=== PATIENT | female | born 1995 | race Caucasian/White ===

== ENCOUNTER 2018-04-15 00:47 | Emergency (ER) | payer OTHER ==
[~2018-04-15] VITALS: Ht 162.6 cm; Wt 63.5 kg
[2018-04-15] MEDS ORDERED: IV NORMAL SALINE 1,000ML 1,000 ML IV ONE ×2 (01:45→04:00)
[2018-04-15] MEDS ORDERED: ONDANSETRON PF 4 MG/2 ML VIAL. IV ONE ×2 (01:45→04:30)
[2018-04-15 02:00] LABS: ALBUMIN 2.8 g/dL (3.4-5.0); ALBUMIN/GLOBULIN RATIO 0.7 (1.0-1.7); CALCIUM 8.4 mg/dL (8.5-10.1); CREATININE 0.7 mg/dL (0.6-1.0); GFR 106.7; POTASSIUM 3.6 mmol/L (3.5-5.1); TOTAL BILIRUBIN 0.5 mg/dL (0.2-1.0)
--- NOTE | 2018-04-15 02:16 | RAD ---
Limited obstetrical ultrasound 04/15/2018. Reason for exam: Vomiting and fever during . A living fetus is demonstrated and was in cephalic position at the time of scanning. Heart rate of 160 bpm were shown and movement was noted. Although a full anatomic survey was not undertaken, no anomaly was encountered. Amniotic fluid volume appears appropriate. The placenta is shown posteriorly and does not reach the cervix. The following age estimates were obtained: BPD: 32 weeks 4 days. HC: 33 weeks 0 days. AC: 32 weeks 0 days. FL: 34 weeks 6 days. Estimated weight is 2097 g. IMPRESSION: Living intrauterine fetus. No evidence of abnormality. Electronically signed by: Josué Dooley Jr., MD (04/15/2018 2:11 AM) [facility]
[2018-04-15 02:35] LABS: BILIRUBIN,URINE NEG (NEG); CLARITY,URINE HAZY; COLOR,URINE AMBER; GLUCOSE,URINE NEG (NEG); NITRITE,URINE NEG (NEG); UROBILINOGEN,URINE 1 mg/dL (0.2 mg/dL)
[2018-04-15 02:36] LABS: BACTERIA,URINE MANY /HPF (0-FEW); RBC,URINE OCC /HPF (0-2); SQUAMOUS EPITHELIAL CELL,UR MOD /LPF
[2018-04-15 02:40] LABS: BASO # 0.1 x10^3/uL (0.0-0.2); BASO % 0 % (0-3); EOS % 0 % (0-3); HEMATOCRIT 34.4 % (36.0-47.0); HEMOGLOBIN 11.3 g/dL (12.0-15.5); LYMPH % 5 % (24-48); MEAN CORPUSCULAR HEMOGLOBIN 28 pg (25-35); MEAN CORPUSCULAR HGB CONC 33 g/dL (31-37); MEAN CORPUSCULAR VOLUME 86 fL (79-100); MONO % 5 % (0-9); NEUT # 16.8 x10^3uL (1.8-7.7); NEUT % 89 % (31-73); PLATELET COUNT 422 x10^3/uL (140-400); RED BLOOD COUNT 4.01 x10^6/uL (3.50-5.40); RED CELL DISTRIBUTION WIDTH 13.5 % (11.5-14.5); WHITE BLOOD COUNT 18.8 x10^3/uL (4.0-11.0)
--- NOTE | 2018-04-15 03:36 | PHYS DOC ---
Past History Past Medical History: Anemia, UTI Past Surgical History: No Surgical History Alcohol Use: None Drug Use: Marijuana Social History Narrative: no marijuana x 1 month Adult General Chief Complaint Chief Complaint: VOMITING IN [facility] HPI 22-year-old female who is 34 weeks presents with abdominal pain and vomiting. The patient states she began have some generalized upper abdominal cramping followed by several rounds of vomiting. This all started today. She is visiting here from [place]. This is her first . She seems to have multiple complications with her and has been in the emergency room several times. Most recent was 2 weeks ago with a similar episode, but less severe. She denies any bleeding. She does not believe these feel like contractions. She did have contractions with the previous episode. She denies fever or chills. She was feeling well prior to this episode. No one else in the house is sick. Review of Systems Review of Systems Constitutional: Denies fever or chills [] Eyes: Denies change in visual acuity, redness, or eye pain [] HENT: Denies nasal congestion or sore throat [] Respiratory: Denies cough or shortness of breath [] Cardiovascular: No additional information not addressed in HPI [] GI: Abdominal pain, nausea, vomiting. Denies bloody stools or diarrhea [] : Denies dysuria or hematuria [] Musculoskeletal: Denies back pain or joint pain [] Integument: Denies rash or skin lesions [] Neurologic: Denies headache, focal weakness or sensory changes [] Endocrine: Denies polyuria or polydipsia [] All other systems were reviewed and found to be within normal limits, except as documented in this note. Current Medications Current Medications Current Medications Medications (Trade) Dose Ordered Sig/Yusef Start Time Stop Time Status Last Admin Dose Admin Ondansetron HCl (Zofran) 4 mg 1X ONCE 04/15/18 01:45 04/15/18 01:48 DC 04/15/18 01:46 4 MG Sodium Chloride 1,000 ml @ 1,000 mls/hr 1X ONCE 04/15/18 01:45 04/15/18 02:44 DC 04/15/18 01:15 1,000 MLS/HR Allergies Allergies Allergies Coded Allergies Type Severity Reaction Last Updated Verified No Known Allergies Allergy Unknown 04/15/18 Yes Physical Exam Physical Exam Constitutional: Well developed, well nourished, no acute distress, non-toxic appearance. [] HENT: Normocephalic, atraumatic, bilateral external ears normal, oropharynx moist, no oral exudates, nose normal. [] Eyes: PERRLA, EOMI, conjunctiva normal, no discharge. [] Neck: Normal range of motion, no tenderness, supple, no stridor. [] Cardiovascular:Heart rate regular rhythm, no murmur [] Lungs & Thorax: Bilateral breath sounds clear to auscultation [] Abdomen: Gravid uterus, mild pain with palpation. [] Skin: Warm, dry, no erythema, no rash. [] Back: No tenderness, no CVA tenderness. [] Extremities: No tenderness, no cyanosis, no clubbing, ROM intact, no edema. [] Neurologic: Alert and oriented X 3, normal motor function, normal sensory function, no focal deficits noted. [] Psychologic: Affect normal, judgement normal, mood normal. [] Current Patient Data Vital Signs Vital Signs Date Time Temp Pulse Resp B/P (MAP) Pulse Ox O2 Delivery O2 Flow Rate FiO2 04/15/18 00:55 99.6 112 18 98 Room Air Lab Results Laboratory Tests Test 04/15/18 01:10 04/15/18 02:05 White Blood Count 18.8 x10^3/uL (4.0-11.0) H Red Blood Count 4.01 x10^6/uL (3.50-5.40) Hemoglobin 11.3 g/dL (12.0-15.5) L Hematocrit 34.4 % (36.0-47.0) L Mean Corpuscular Volume 86 fL (79-100) Mean Corpuscular Hemoglobin 28 pg (25-35) Mean Corpuscular Hemoglobin Concent 33 g/dL (31-37) Red Cell Distribution Width 13.5 % (11.5-14.5) Platelet Count 422 x10^3/uL (140-400) H Neutrophils (%) (Auto) 89 % (31-73) H Lymphocytes (%) (Auto) 5 % (24-48) L Monocytes (%) (Auto) 5 % (0-9) Eosinophils (%) (Auto) 0 % (0-3) Basophils (%) (Auto) 0 % (0-3) Neutrophils # (Auto) 16.8 x10^3uL (1.8-7.7) H Lymphocytes # (Auto) 1.0 x10^3/uL (1.0-4.8) Monocytes # (Auto) 1.0 x10^3/uL (0.0-1.1) Eosinophils # (Auto) 0.0 x10^3/uL (0.0-0.7) Basophils # (Auto) 0.1 x10^3/uL (0.0-0.2) Platelet Estimate Pending Sodium Level 137 mmol/L (136-145) Potassium Level 3.6 mmol/L (3.5-5.1) Chloride Level 101 mmol/L (98-107) Carbon Dioxide Level 21 mmol/L (21-32) Anion Gap 15 (6-14) H Blood Urea Nitrogen 10 mg/dL (7-20) Creatinine 0.7 mg/dL (0.6-1.0) Estimated GFR (Cockcroft-Gault) 106.7 BUN/Creatinine Ratio 14 (6-20) Glucose Level 114 mg/dL (70-99) H Calcium Level 8.4 mg/dL (8.5-10.1) L Total Bilirubin 0.5 mg/dL (0.2-1.0) Aspartate Amino Transferase (AST) 13 U/L (15-37) L Alanine Aminotransferase (ALT) 11 U/L (14-59) L Alkaline Phosphatase 110 U/L (46-116) Total Protein 7.0 g/dL (6.4-8.2) Albumin 2.8 g/dL (3.4-5.0) L Albumin/Globulin Ratio 0.7 (1.0-1.7) L Urine Collection Type Unknown Urine Color Tatyana Urine Clarity Hazy Urine pH 6.0 Urine Specific Dighton >=1.030 Urine Protein 100 mg/dl (NEG-TRACE) Urine Glucose (UA) Neg mg/dL (NEG) Urine Ketones (Stick) >=160 mg/dL (NEG) Urine Blood Neg (NEG) Urine Nitrite Neg (NEG) Urine Bilirubin Neg (NEG) Urine Urobilinogen Dipstick 1 mg/dL (0.2 mg/dL) Urine Leukocyte Esterase Neg (NEG) Urine RBC Occ /HPF (0-2) Urine WBC 5-10 /HPF (0-4) Urine Squamous Epithelial Cells Mod /LPF Urine Bacteria Many /HPF (0-FEW) Urine Mucus Mod /LPF EKG EKG [] Radiology/Procedures Radiology/Procedures [] Impressions: Limited obstetrical ultrasound 04/15/2018. Reason for exam: Vomiting and fever during . A living fetus is demonstrated and was in cephalic position at the time of scanning. Heart rate of 160 bpm were shown and movement was noted. Although a full anatomic survey was not undertaken, no anomaly was encountered. Amniotic fluid volume appears appropriate. The placenta is shown posteriorly and does not reach the cervix. The following age estimates were obtained: BPD: 32 weeks 4 days. HC: 33 weeks 0 days. AC: 32 weeks 0 days. FL: 34 weeks 6 days. Estimated weight is 2097 g. IMPRESSION: Living intrauterine fetus. No evidence of abnormality. Electronically signed by: Carlos Dooley Jr., MD (04/15/2018 2:11 AM) [facility] DICTATED AND SIGNED BY: CARLOS DOOLEY Jr, MD DATE: 04/15/18 0209 CC: DULCE HAMPTON DO; PCPPASTORA Course & Med Decision Making Course & Med Decision Making Pertinent Labs and Imaging studies reviewed. (See chart for details) The patient has been given a total of 2 L normal saline, 8 mg of Zofran, 20 mg Pepcid. The patient's labs are significant for white count of 18.8 left shift. Her urinalysis is negative for leukocyte esterase or nitrate. There were 5-10 white cells and bacteria seen. The patient has not had a cough or other symptoms that could explain the white count. I discussed the patient with Dr. Sanchez at [facility] and he has recommended the patient be transferred to OB triage at that facility. I discussed this with the patient and she is in agreement. She would prefer to go by personal vehicle. I believe this is reasonable as she is medically stable at this time and she has family members who will drive her. [] Dragon Disclaimer Dragon Disclaimer This electronic medical record was generated, in whole or in part, using a voice recognition dictation system. Departure Departure: Referrals: PASTORA OLIVEIRA (PCP) DULCE HAMPTON DO Apr 15, 2018 03:36
[2018-04-15 03:56] LABS: % BANDS 10 % (0-9); % EOS 1 % (0-5); % LYMPHS 4 % (24-48); % MONOS 7 % (0-10); % MYELOS 1 % (0-0); % SEGS 77 % (35-66); PLT ESTIMATE INCREASED (ADEQUATE); TOXIC GRANULATION SLIGHT; TOXIC VACUOLATION SLIGHT
[2018-04-15] MEDS ORDERED: FAMOTIDINE 20 MG/2 ML VIAL IVP ONE (04:30)
[2018-04-15 05:00] VITALS: BP 111/40
== END 2018-04-15 05:00 | disposition short-term general hospital (02) ==
LOC: ER 00:47
DX: O26.893 Other specified pregnancy related conditions, third trimester (principal); R10.84 Generalized abdominal pain; O21.9 Vomiting of pregnancy, unspecified; R82.998 Other abnormal findings in urine; O99.013 Anemia complicating pregnancy, third trimester; O23.43 Unspecified infection of urinary tract in pregnancy, third trimester; Z3A.34 34 weeks gestation of pregnancy
CPT/HCPCS: 36415; 76815; 80053; 81001; 85007; 85025; 87086; 96361; 96374; 96375; 96376; 99285; J2405; J3490; J7030

== ENCOUNTER 2019-10-16 13:36 | Emergency (ER) | payer OTHER ==
[~2019-10-16] VITALS: Ht 162.6 cm; Wt 59.0 kg
[2019-10-16 13:40] VITALS: BP 132/87
[2019-10-16] MEDS ORDERED: IV NORMAL SALINE 1,000ML 1,000 ML IV ONE (14:30)
[2019-10-16 14:41] LABS: BASO % 1 % (0-3); EOS % 0 % (0-3); HEMATOCRIT 36.2 % (36.0-47.0); HEMOGLOBIN 11.6 g/dL (12.0-15.5); LYMPH # 1.5 x10^3/uL (1.0-4.8); LYMPH % 20 % (24-48); MEAN CORPUSCULAR HEMOGLOBIN 26 pg (25-35); MEAN CORPUSCULAR HGB CONC 32 g/dL (31-37); MEAN CORPUSCULAR VOLUME 81 fL (79-100); MONO # 0.7 x10^3/uL (0.0-1.1); MONO % 9 % (0-9); NEUT # 5.2 x10^3uL (1.8-7.7); NEUT % 70 % (31-73); PLATELET COUNT 318 x10^3/uL (140-400); RED BLOOD COUNT 4.47 x10^6/uL (3.50-5.40); RED CELL DISTRIBUTION WIDTH 16.2 % (11.5-14.5); WHITE BLOOD COUNT 7.4 x10^3/uL (4.0-11.0)
--- NOTE | 2019-10-16 14:42 | PHYS DOC ---
Past History Past Medical History: Anemia, UTI Past Surgical History: No Surgical History Alcohol Use: None Drug Use: Marijuana General Adult EDM: Chief Complaint: DIZZY/LIGHT HEADED HPI: HPI: Patient is a 23-year-old female presenting to the ED with a chief complaint of dizziness and lightheadedness. Patient states that the symptoms started this morning. Patient states that she is of unknown age. Patient states that her last menstrual cycle was August 16. Patient states that she is G2, P1. Patient denies vaginal bleeding, vaginal spotting, vaginal discharge. Patient denies abdominal pain or pelvic pain. Patient also denies headache.. Review of Systems: Review of Systems: Constitutional: Denies fever or chills Eyes: Denies change in visual acuity HENT: Denies nasal congestion or sore throat Respiratory: Denies cough or shortness of breath Cardiovascular: Denies chest pain or edema GI: Denies abdominal pain, nausea, vomiting and diarrhea : Denies dysuria Musculoskeletal: Denies back pain or joint pain Neurologic: Denies headache, focal weakness but does complain of lightheadedness and dizziness Heart Score: Risk Factors: Risk Factors: DM, Current or recent (<one month) smoker, HTN, HLP, family history of CAD, obesity. Risk Scores: Score 0 - 3: 2.5% MACE over next 6 weeks - Discharge Home Score 4 - 6: 20.3% MACE over next 6 weeks - Admit for Clinical Observation Score 7 - 10: 72.7% MACE over next 6 weeks - Early Invasive Strategies Current Medications: Current Meds: Current Medications Medications (Trade) Dose Ordered Sig/[facility] Start Time Stop Time Status Last Admin Dose Admin Sodium Chloride 1,000 ml @ 1,000 mls/hr 1X ONCE 10/16/19 14:30 10/16/19 15:29 10/16/19 14:30 1,000 MLS/HR Allergies: Allergies: Allergies Coded Allergies Type Severity Reaction Last Updated Verified No Known Allergies Allergy Unknown 04/15/18 Yes Physical Exam: PE: Constitutional: Well developed, well nourished, no acute distress, non-toxic appearance. [] HENT: Normocephalic, atraumatic Eyes: EOMI Neck: Normal range of motion, Supple Cardiovascular:Heart rate regular rhythm Lungs & Thorax: Bilateral breath sounds clear to auscultation [] Abdomen: Bowel sounds normal, soft, no tenderness Extremities: No tenderness, ROM intact Neurologic: Alert and oriented X 3 EKG: EKG: [] Radiology/Procedures: Radiology/Procedures: [] Course & Med Decision Making: Course & Med Decision Making Pertinent Labs reviewed. (See chart for details) Ordered labs, UA, urine , beta hCG, IV fluids. Labs are within normal limits. UA shows no UTI. Beta-hCG level is 156015 Patient states that she is feeling better after IV fluids. Patient is instructed to follow-up with [facility] for further evaluation and treatment. Discussed results and plan of care with patient. Patient is instructed to follow up with PCP in one to 2 days. Appropriate discharge instructions given to patient to return to the ED or to seek immediate medical evaluation. Patient is instructed to return to the ED if symptoms worsen or if any concerns. Dragon Disclaimer: Dragon Disclaimer: This electronic medical record was generated, in whole or in part, using a voice recognition dictation system. Departure Departure: Impression: Primary Impression: Dehydration Additional Impression: Disposition: 01 HOME/RESIDENCE PRIOR TO ADM Condition: STABLE Referrals: PCP,UNKNOWN (PCP) Patient Instructions: ABCs of , Dehydration, Adult, Dizziness Additional Instructions: Discussed results and plan of care with patient. Patient is instructed to follow up with PCP in one to 2 days. Appropriate discharge instructions given to patient to return to the ED or to seek immediate medical evaluation. Patient is instructed to return to the ED if symptoms worsen or if any concerns. Justification of Admission: Justification of Admission: Justification of Admission Dx: RAHEEL Perea DO Oct 16, 2019 14:42
[2019-10-16 14:49] LABS: CALCIUM 8.7 mg/dL (8.5-10.1); CREATININE 0.8 mg/dL (0.6-1.0); GFR 90.5; POTASSIUM 3.9 mmol/L (3.5-5.1)
[2019-10-16 14:54] LABS: ALBUMIN 3.5 g/dL (3.4-5.0); TOTAL BILIRUBIN 0.4 mg/dL (0.2-1.0); TOTAL PROTEIN 7.1 g/dL (6.4-8.2)
[2019-10-16 16:41] LABS: BACTERIA,URINE 0 /HPF (0-FEW); BILIRUBIN,URINE NEG (NEG); CLARITY,URINE CLEAR; COLOR,URINE YELLOW; GLUCOSE,URINE NEG (NEG); NITRITE,URINE NEG (NEG); RBC,URINE OCC /HPF (0-2); SQUAMOUS EPITHELIAL CELL,UR OCC /LPF; UROBILINOGEN,URINE 0.2 mg/dL (0.2 mg/dL); WBC,URINE OCC /HPF (0-4)
== END 2019-10-16 17:11 | disposition home or self-care (01) ==
LOC: ER 13:36
DX: O26.891 Other specified pregnancy related conditions, first trimester (principal); E86.0 Dehydration; R42 Dizziness and giddiness; F12.90 Cannabis use, unspecified, uncomplicated
CPT/HCPCS: 36415; 80053; 81001; 83690; 84702; 85025; 96360; 99283; J7030